=== PATIENT | female | born 1990 | race African-American/Black ===

== ENCOUNTER 2017-07-24 23:44 | Emergency (ER) | payer OTHER, SELFPAY ==
[2017-07-24] MEDS ORDERED: DIPHENHYDRAMINE 50 MG/ML VIAL ONE (23:59)
[2017-07-24] MEDS ORDERED: NA CHLORIDE 0.9% 1,000 ML ONE (23:59)
[2017-07-24] MEDS ORDERED: METHYLPREDNISOLONE 125 MG INJ ONE (23:59)
[2017-07-25] MEDS ORDERED: FAMOTIDINE 20 MG TAB ONE (00:09)
--- NOTE | 2017-07-25 02:15 | ER ---
Nurse's Notes [facility] Name: Ashley Thomas Age: 27 yrs Sex: Female : 1990 Arrival Date: 07/24/2017 Time: 23:44 Bed 5 Private MD: Diagnosis: Acute allergic reaction Presentation: 07/24 23:53 Presenting complaint: Patient states: she started coughing and feeling tightness in her aa1 chest when she went to lay down for bed and when she got up she noticed her face was beginning to swell. Reports that she thinks she may be having an allergic rxn to a lotion she used. Transition of care: patient was not received from another setting of care. Onset: The symptoms/episode began/occurred just prior to arrival. Anaphylaxis evaluation, no signs or symptoms of anaphylaxis were noted. Onset of symptoms was July 24, 2017. Initial Sepsis Screen: Does the patient meet any 2 criteria? No. Patient's initial sepsis screen is negative. Does the patient have a suspected source of infection? No. Patient's initial sepsis screen is negative. Care prior to arrival: None. 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 - Social history:: Smoking status: Patient/guardian denies using tobacco, Smoking status: unknown. Screenin:57 Abuse screen: Denies threats or abuse. Denies injuries from another. Nutritional ak1 screening: No deficits noted. Tuberculosis screening: No symptoms or risk factors identified. Fall Risk None identified. Assessment: 23:55 General: Appears uncomfortable, Behavior is cooperative, crying. Pain: Complains of ak1 pain in face. Neuro: Level of Consciousness is awake, alert, obeys commands, Oriented to person, place, time, situation, Diabetologist are equal bilaterally Moves all extremities. Gait is steady, Speech is normal. Cardiovascular: No deficits noted. Respiratory: Airway is patent Respiratory effort is even, unlabored, Breath sounds are clear bilaterally. GI: Reports nausea. : No signs and/or symptoms were reported regarding the genitourinary system. EENT: Eyes swelling noted to bilateral eyes. swelling noted to lips. Derm: Reports itching, itching to bilateral hands. Musculoskeletal: No signs and/or symptoms reported regarding the musculoskeletal system. 07/25 01:24 Reassessment: Patient appears in no apparent distress at this time. Patient is alert, ak1 oriented x 3, equal unlabored respirations, skin warm/dry/pink. Patient states symptoms have improved. pt continues to c/o "not feeling well" pt stated she "still has some itching" no resp distress noted. pt resting with eyes closed, resp even and unlabored upon RN going into ER5. family at bedside, will continue to monitor. . 02:24 Reassessment: Patient is alert, oriented x 3, equal unlabored respirations, skin bb warm/dry/pink. verbalized understanding of and agrees to plan of care discharge instructions given pt ambulated with steady gait to exit accompanied by family. Vital Signs: 07/24 23:56 BP 137 / 107; Pulse 84; Resp 18; Temp 97.9; Pulse Ox 98% on R/A; Weight 102.06 kg; aa1 Height 5 ft. 1 in. (154.94 cm); Pain 7/10; 07/25 00:08 BP 116 / 88; Pulse 85; Resp 18; Pulse Ox 97% on R/A; ak1 01:23 BP 137 / 90; Pulse 72; Resp 18; Temp 98; Pulse Ox 98% on R/A; ak1 02:11 BP 136 / 92; Pulse 78; Resp 16; Pulse Ox 98% on R/A; ak1 07/24 23:56 Body Mass Index 42.51 (102.06 kg, 154.94 cm) aa1 ED Course: 07/24 23:44 Patient arrived in ED. al2 23:46 Duong Renner MD is Attending Physician. pkl 23:55 Martha Neves, RN is Primary Nurse. ak1 23:55 Inserted saline lock: 20 gauge in right antecubital area, using aseptic technique. ak1 Blood collected. 23:56 Triage completed. aa1 23:56 Arm band placed on right wrist. Patient placed in an exam room, on a stretcher. aa1 23:57 Patient has correct armband on for positive identification. Call light in reach. Side ak1 rails up X 1. Adult w/ patient. Pulse ox on. NIBP on. 05 02:26 No provider procedures requiring assistance completed. IV discontinued, intact, bb bleeding controlled, No redness/swelling at site. Pressure dressing applied. Administered Medications: 00:06 Drug: Benadryl 25 mg Route: IVP; Site: right antecubital; ak1 02:26 Follow up: Response: No adverse reaction bb 00:07 Drug: NS 0.9% 1000 ml Route: IV; Rate: 100 ml/hr; Site: right antecubital; ak1 02:25 Follow up: IV Status: Order to discontinue infusion; IV Intake: 200ml bb 00:07 Drug: SOLU-Medrol 125 mg Route: IVP; Site: right antecubital; ak1 02:25 Follow up: Response: No adverse reaction bb 00:08 CANCELLED (medication not found, new verbal orders): Pepcid 20 mg IVP once ak1 00:14 Drug: Pepcid 20 mg Route: PO; ak1 02:26 Follow up: Response: No adverse reaction bb Intake: 02:25 IV: 200ml; Total: 200ml. bb Outcome: 02:14 Discharge ordered by . pkgordo 02:26 Discharged to home ambulatory, with friend. bb 02:26 Condition: stable 02:26 Discharge instructions given to patient, Instructed on discharge instructions, follow up and referral plans. medication usage, Demonstrated understanding of instructions, follow-up care, medications, Prescriptions given X 1. 02:27 Patient left the ED. bb Signatures: Lucila Carvajal RN RN aa1 Duong Renner MD MD pkTyesha Caraballo RN RN bb Martha Neves RN RN ak1 Re Moore
--- NOTE | 2017-07-25 02:15 | EDPHYS ---
Physician Documentation [facility] Name: Ashley Thomas Age: 27 yrs Sex: Female : 1990 Arrival Date: 07/24/2017 Time: 23:44 Bed 5 Private MD: ED Physician Duong Renner HPI: 07/25 00:05 This 27 yrs old Black Female presents to ER via Ambulatory with complaints of Allergic pkl Reaction, Facial Swelling. 00:05 The patient presents with localized swelling, swelling of the lips. Onset: The pkl symptoms/episode began/occurred just prior to arrival, 1 hour(s) ago. Associated signs and symptoms: Pertinent positives: tightness in chest. 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 - Social history:: Smoking status: Patient/guardian denies using tobacco, Smoking status: unknown. ROS: 07/25 00:05 ENT: Negative for injury, pain, and discharge. pkl Eyes: Positive for swelling, of the periorbital. ENT: Positive for swollen lips. Neck: Negative for stiffness. Cardiovascular: Negative for chest pain. Respiratory: Positive for shortness of breath, tightness in chest. Abdomen/GI: Negative for abdominal pain, nausea, vomiting, and diarrhea. Back: Negative for pain at rest. : Negative for urinary symptoms. MS/extremity: Negative for acute changes. Skin: Negative for rash. Neuro: Negative for altered mental status. Exam: 00:05 Neck: Trachea midline, no thyromegaly or masses palpated, and no cervical pkl lymphadenopathy. Supple, full range of motion without nuchal rigidity, or vertebral point tenderness. No Meningismus. 00:05 Head/face: Noted is swelling, that is mild, of the face. 00:05 Eyes: Periorbital structures: swelling, that is mild, bilaterally. 00:05 ENT: Mouth: Lips: swollen both lips. 00:05 Neck: Exam negative for nuchal rigidity. 00:05 Chest/axilla: Exam negative for acute changes. 00:05 Cardiovascular: Rate: normal, Rhythm: regular. 00:05 Respiratory: the patient does not display signs of respiratory distress, Respirations: normal, Breath sounds: are clear throughout. 00:05 Abdomen/GI: Bowel sounds: normal, Palpation: abdomen is soft and non-tender, in all quadrants. 00:05 Back: Exam negative for acute changes. 00:05 : Exam negative for acute changes. 00:05 Musculoskeletal/extremity: Exam is negative for acute changes. 00:05 Skin: Exam negative for rash. 00:05 Neuro: Orientation: is normal, Mentation: is normal, Cranial nerves: grossly normal, Motor: is normal. Vital Signs: 07/24 23:56 BP 137 / 107; Pulse 84; Resp 18; Temp 97.9; Pulse Ox 98% on R/A; Weight 102.06 kg; aa1 Height 5 ft. 1 in. (154.94 cm); Pain 7/10; 07/25 00:08 BP 116 / 88; Pulse 85; Resp 18; Pulse Ox 97% on R/A; ak1 01:23 BP 137 / 90; Pulse 72; Resp 18; Temp 98; Pulse Ox 98% on R/A; ak1 02:11 BP 136 / 92; Pulse 78; Resp 16; Pulse Ox 98% on R/A; ak1 07/24 23:56 Body Mass Index 42.51 (102.06 kg, 154.94 cm) aa1 MDM: 07/24 23:46 Patient medically screened. pkl 07/25 02:14 Data reviewed: vital signs, nurses notes. pkl Administered Medications: 00:06 Drug: Benadryl 25 mg Route: IVP; Site: right antecubital; ak1 02:26 Follow up: Response: No adverse reaction bb 00:07 Drug: NS 0.9% 1000 ml Route: IV; Rate: 100 ml/hr; Site: right antecubital; ak1 02:25 Follow up: IV Status: Order to discontinue infusion; IV Intake: 200ml bb 00:07 Drug: SOLU-Medrol 125 mg Route: IVP; Site: right antecubital; ak1 02:25 Follow up: Response: No adverse reaction bb 00:08 CANCELLED (medication not found, new verbal orders): Pepcid 20 mg IVP once ak1 00:14 Drug: Pepcid 20 mg Route: PO; ak1 02:26 Follow up: Response: No adverse reaction bb Disposition: 07/25/17 02:14 Discharged to Home. Impression: Acute allergic reaction. - Condition is Stable. - Prescriptions for Prednisone 20 mg Oral Tablet - take 1 tablet by ORAL route every 12 hours for 5 days; 6 tablet. - Medication Reconciliation Form, Thank You Letter, Antibiotic Education, Prescription Opioid Use form. - Follow up: Private Physician; When: 1 - 2 days; Reason: Re-evaluation by your physician. - Problem is new. - Symptoms have improved. Signatures: Lucila Carvajal RN RN aa1 Duong Renner MD MD pkTyesha Caraballo RN RN bb Martha Neves RN RN ak1 Corrections: (The following items were deleted from the chart) 00:08 07/24 23:56 Pepcid 20 mg IVP once ordered. pkl ak1
== END 2017-07-25 02:27 | disposition home or self-care (01) ==
LOC: ER 23:44
DX: T78.40XA Allergy, unspecified, initial encounter (principal); X58.XXXA Exposure to other specified factors, initial encounter
CPT/HCPCS: 96361; 96374; 96375; 99284; J2930; J7030